=== PATIENT | female | born 1940 | race Caucasian/White ===

== ENCOUNTER 2021-09-12 09:53 | Day surgery (SDC) | payer MEDICARE, BC ==
[2021-09-07 15:04] LABS: BASOPHILS # (AUTO) 0.1 X10'3 (0-0.2); BASOPHILS % (AUTO) 1.6 % (0-1); EOSINOPHILS # (AUTO) 0.2 X10'3 (0-0.9); EOSINOPHILS % (AUTO) 3.7 % (0-6); HEMATOCRIT 22.9 % (35.0-45.0); LYMPHOCYTES # (AUTO) 0.9 X10'3 (1.1-4.8); LYMPHOCYTES % (AUTO) 15.5 % (21-51); MEAN CORPUSCULAR HEMOGLOBIN 22.3 PG (27.0-31.0); MEAN CORPUSCULAR HGB CONC 30.6 g/dL (33.0-36.5); MEAN PLATELET VOLUME 8.5 FL (7.4-10.4); MONOCYTES # (AUTO) 0.6 X10'3 (0-0.9); MONOCYTES % (AUTO) 10.9 % (2-12); NEUTROPHILS # (AUTO) 3.8 X10'3 (1.8-7.7); NEUTROPHILS % (AUTO) 68.3 % (42-75); PLATELET COUNT 347 X10'3 (140-440); RED BLOOD COUNT 3.13 X10'6 (4.20-5.60); RED CELL DISTRIBUTION WIDTH 17.2 % (11.5-14.5); WHITE BLOOD COUNT 5.6 X10'3 (4.5-11.0)
[2021-09-07 15:16] LABS: APTT 26 SECONDS (22-32)
[2021-09-07 15:20] LABS: ALANINE AMINOTRANSFERASE 16 U/L (12-78); ALBUMIN 3.5 G/DL (3.4-5.0); ALKALINE PHOSPHATASE 71 IU/L (46-116); ANION GAP 9 (8-16); ASPARTATE AMINO TRANSFERASE 14 U/L (10-37); BILIRUBIN,TOTAL 0.2 MG/DL (0.1-1.0); BLOOD UREA NITROGEN 16 MG/DL (7-18); BUN/CREATININE RATIO 14.3 (6.6-38.0); CALCIUM 8.8 MG/DL (8.5-10.1); CHLORIDE 106 MMOL/L (99-107); CREATININE 1.12 MG/DL (0.40-0.90); GLUCOSE 104 MG/DL (70-104); SODIUM 138 MMOL/L (135-145); TOTAL CARBON DIOXIDE 22.7 MMOL/L (24-32); eGFR 47 ML/MIN
[~2021-09-12] VITALS: Ht 144.8 cm; Wt 84.8 kg
[2021-09-12] MEDS ORDERED: LORazepam 0.5 MG tablet PO PRN (10:10)
[2021-09-12] MEDS ORDERED: nitroGLYCERIN 0.4mg SUBLingual tab SL PRN (10:10)
[2021-09-12] MEDS ORDERED: diphenhydrAMINE 25mg capsule PO PRN (10:10)
[2021-09-12 10:12] VITALS: BP 146/64
[2021-09-12] MEDS ORDERED: ATOR20TA66 PO (10:45)
[2021-09-12] MEDS ORDERED: TIMO5DRO4 EACHEYE (10:45)
[2021-09-12] MEDS ORDERED: DICL50TA8 PO (10:45)
[2021-09-12] MEDS ORDERED: SPIR50TA5 PO (10:45)
[2021-09-12] MEDS ORDERED: SLEEP AID (11:03)
[2021-09-12] MEDS ORDERED: MULT-1085 PO (11:03)
[2021-09-12] MEDS ORDERED: [UNRECOGNIZED DRUG - MIXTURE] (11:03)
[2021-09-12] MEDS ORDERED: GLUC (11:03)
[2021-09-12] MEDS ORDERED: CHROND (11:03)
[2021-09-12] MEDS ORDERED: CHOL20002 PO (11:03)
[2021-09-12] MEDS ORDERED: ESOM20CA PO (11:03)
[2021-09-12 11:57] LABS: BASOPHILS # (AUTO) 0.1 X10'3 (0-0.2); EOSINOPHILS # (AUTO) 0.1 X10'3 (0-0.9); LYMPHOCYTES # (AUTO) 0.8 X10'3 (1.1-4.8); MONOCYTES # (AUTO) 0.5 X10'3 (0-0.9); RED CELL DISTRIBUTION WIDTH 17.5 % (11.5-14.5); WHITE BLOOD COUNT 4.3 X10'3 (4.5-11.0)
[2021-09-12 11:58] LABS: BASOPHILS % (AUTO) 1.7 % (0-1); EOSINOPHILS % (AUTO) 2.6 % (0-6); MEAN CORPUSCULAR HEMOGLOBIN 21.9 PG (27.0-31.0); MEAN CORPUSCULAR HGB CONC 30.6 g/dL (33.0-36.5); MEAN CORPUSCULAR VOLUME 71.6 FL (78-98); MEAN PLATELET VOLUME 8.5 FL (7.4-10.4); MONOCYTES % (AUTO) 12.5 % (2-12); NEUTROPHILS # (AUTO) 2.7 X10'3 (1.8-7.7); NEUTROPHILS % (AUTO) 64.2 % (42-75); PLATELET COUNT 334 X10'3 (140-440); RED BLOOD COUNT 2.96 X10'6 (4.20-5.60)
[2021-09-12 12:00] LABS: HEMATOCRIT 21.2 % (35.0-45.0); HEMOGLOBIN 6.5 g/dl (12.0-16.0)
[2021-09-12 12:25] LABS: ANISOCYTOSIS 1+; MICROCYTOSIS 1+; PLATELET ESTIMATE NORMAL
[2021-09-12 12:26] LABS: POLYCHROMASIA 2+
[2021-09-12 12:27] LABS: ROULEAUX 2+
[2021-09-12 12:28] LABS: ELLIPTOCYTES FEW; HYPOCHROMASIA 2+; SCHISTOCYTES FEW
[2021-09-12] MEDS ORDERED: [UNRECOGNIZED DRUG - OTHER] (13:01)
[2021-09-12] MEDS ORDERED: DENO60DI SUBCUT (14:23)
[2021-09-12] MEDS ORDERED: GLUC1CAP36 PO (14:25)
[2021-09-13] MEDS ORDERED: VITC500T PO (09:47)
[2021-09-13] MEDS ORDERED: FER325T PO (09:47)
[2021-09-13] MEDS ORDERED: DOCU100C40 PO (09:47)
== END 2021-09-12 12:30 | disposition home or self-care (01) ==
LOC: SSTAY O 09:53
PROVIDERS: ATTEND Internal Medicine Cardiovascular Disease
DX: R94.39 Abnormal result of other cardiovascular function study (principal); Z53.8 Procedure and treatment not carried out for other reasons; R06.09 Other forms of dyspnea; K21.9 Gastro-esophageal reflux disease without esophagitis; H40.9 Unspecified glaucoma; E78.5 Hyperlipidemia, unspecified; E66.9 Obesity, unspecified; Z68.41 Body mass index [BMI] 40.0-44.9, adult; Z79.01 Long term (current) use of anticoagulants; Z79.899 Other long term (current) drug therapy
CPT/HCPCS: 36415; 71046; 80053; 85025; 85610; 85730; 93005; Q0163; 85008

== ENCOUNTER 2021-09-12 12:29 | Observation (INO) | payer MEDICARE, BC ==
[2021-09-12] VITALS (9 sets, daily range): BP systolic 123–157; BP diastolic 50–78
[~2021-09-12] VITALS: Ht 144.8 cm; Wt 85.4 kg
[~2021-09-12 12:29] MED LIST: ATOR20TA66 PO; CHOL20002 PO; CHROND; DICL50TA8 PO; ESOM20CA PO; GLUC; MULT-1085 PO; SLEEP AID; SPIR50TA5 PO; TIMO5DRO4 EACHEYE; [UNRECOGNIZED DRUG - MIXTURE]
[2021-09-12] MEDS ORDERED: [UNRECOGNIZED DRUG - OTHER] (13:01)
[2021-09-12 13:13] LABS: BASOPHILS # (AUTO) 0.1 X10'3 (0-0.2); BASOPHILS % (AUTO) 1.7 % (0-1); EOSINOPHILS # (AUTO) 0.1 X10'3 (0-0.9); EOSINOPHILS % (AUTO) 1.8 % (0-6); LYMPHOCYTES # (AUTO) 0.9 X10'3 (1.1-4.8); LYMPHOCYTES % (AUTO) 21.8 % (21-51); MEAN CORPUSCULAR HEMOGLOBIN 22.3 PG (27.0-31.0); MEAN CORPUSCULAR VOLUME 72.1 FL (78-98); MEAN PLATELET VOLUME 8.7 FL (7.4-10.4); MONOCYTES # (AUTO) 0.5 X10'3 (0-0.9); MONOCYTES % (AUTO) 11.8 % (2-12); NEUTROPHILS # (AUTO) 2.6 X10'3 (1.8-7.7); NEUTROPHILS % (AUTO) 62.9 % (42-75); PLATELET COUNT 341 X10'3 (140-440); RED BLOOD COUNT 2.91 X10'6 (4.20-5.60); RED CELL DISTRIBUTION WIDTH 17.7 % (11.5-14.5); WHITE BLOOD COUNT 4.1 X10'3 (4.5-11.0)
[2021-09-12 13:18] LABS: HEMOGLOBIN 6.5 g/dl (12.0-16.0)
[2021-09-12 13:27] LABS: APTT 24 SECONDS (22-32)
[2021-09-12 13:30] LABS: ALANINE AMINOTRANSFERASE 17 U/L (12-78); ALBUMIN 3.5 G/DL (3.4-5.0); ALBUMIN/GLOBULIN RATIO 0.9 (1.1-1.5); ALKALINE PHOSPHATASE 56 IU/L (46-116); ANION GAP 13 (8-16); ASPARTATE AMINO TRANSFERASE 10 U/L (10-37); BILIRUBIN,TOTAL 0.3 MG/DL (0.1-1.0); BLOOD UREA NITROGEN 18 MG/DL (7-18); BUN/CREATININE RATIO 17.5 (6.6-38.0); CALCIUM 8.7 MG/DL (8.5-10.1); CHLORIDE 105 MMOL/L (99-107); CREATININE 1.03 MG/DL (0.40-0.90); GLUCOSE 88 MG/DL (70-104); POTASSIUM 3.5 MMOL/L (3.5-5.1); SODIUM 139 MMOL/L (135-145); TOTAL CARBON DIOXIDE 21.2 MMOL/L (24-32); TOTAL PROTEIN 7.2 G/DL (6.4-8.2); eGFR 52 ML/MIN
--- NOTE | 2021-09-12 13:30 | NUR ---
CONSENTS SIGNED FOR BLOOD
[2021-09-12 13:46] LABS: CLARITY,URINE CLEAR (Clear); GLUCOSE, URINE NEGATIVE (Neg); KETONES,URINE NEGATIVE (Neg); LEUKOCYTE ESTERASE ,URINE NEGATIVE (Neg); NITRITES, URINE NEGATIVE (Neg); OCCULT BLOOD,URINE NEGATIVE (Neg); PH,URINE 5.5 (4.8-8.0); PROTEIN,URINE NEGATIVE (Neg); UROBILINOGEN,URINE 0.2 E.U/dL (0.2-1.0)
[2021-09-12 13:48] LABS: COLOR,URINE STRAW (Yellow); UA COLLECTION TYPE VOIDED
[2021-09-12] MEDS ORDERED: DENO60DI SUBCUT (14:23)
[2021-09-12] MEDS ORDERED: GLUC1CAP36 PO (14:25)
[2021-09-12] MEDS ORDERED: metoclopramide 5 mg/ml inj IV PRN (14:40)
[2021-09-12] MEDS ORDERED: acetaminophen 325mg tablet PO PRN ×2 (14:40)
[2021-09-12] MEDS ORDERED: potassium CL 10mEq/100ml bag 100 ML IV PRN (14:40)
[2021-09-12] MEDS ORDERED: normal saline 1000ml 1,000 ML IV SCH (14:40)
[2021-09-12] MEDS ORDERED: potassium Cl 20 mEq SR tablet PO PRN ×2 (14:40)
[2021-09-12] MEDS ORDERED: magnesium 2GM in 50ml NS 50 ML IV PRN (14:40)
[2021-09-12] MEDS ORDERED: magnesium hydroxide 30ml (MOM) UD suspension PO PRN (14:40)
[2021-09-12] MEDS ORDERED: magnesium Cl slow-release 64mg tablet PO PRN (14:40)
[2021-09-12] MEDS ORDERED: magnesium 4gm in 100ml NS 100 ML IV PRN (14:40)
[2021-09-12] MEDS ORDERED: mag hydrox/Alum hydrox/simeth 30ml oral suspension PO PRN (14:40)
[2021-09-12] MEDS ORDERED: bisacodyl 10mg suppository rectal RC PRN (14:40)
[2021-09-12] MEDS ORDERED: ondansetron/PF 4mg/2ml inj IV PRN (14:40)
[2021-09-12] MEDS ORDERED: ondansetron 4mg rapidly disintigrating tab PO PRN (14:40)
[2021-09-12] MEDS ORDERED: morphine 2 MG/ML inj. syringe IV PRN ×2 (14:40)
[2021-09-12 15:16] LABS: MAGNESIUM 1.9 MG/DL (1.5-2.4)
[2021-09-12] MEDS ORDERED: PERFLUTREN PROTEIN-A MICROSPHR (Optison) 0.22 MG/ML 3ML VIAL IV ONE (15:30)
[2021-09-12 15:37] LABS: OCCULT BLOOD STOOL NEGATIVE (Neg)
[2021-09-12] MEDS: K and/or MAG REPLACEMENT MC SCH (18:38)
--- NOTE | 2021-09-12 18:42 | NUR ---
Pt pink, alert, no s/s of transfusion reaction. PIV site c/d/i s complication or adverse rxn. Friend at bedside.
--- NOTE | 2021-09-12 19:17 | NUR ---
Pt pink, alert, no acute/resp distress. Report called to floor. PIV site c/d/i s complication or adverse reaction.
[2021-09-12 19:18] LABS: POTASSIUM 3.6 MMOL/L (3.5-5.1)
--- NOTE | 2021-09-12 19:40 | NUR ---
Received report from Herve MACHADO from ED, patient came up via gurney but was able to walk to the bed. Bed placed in locked & low position and call light placed within reach.
[2021-09-12] MEDS: docusate sod 100mg capsule PO SCH (20:25)
[2021-09-12] MEDS: ascorbic acid 500mg tablet PO SCH (20:25)
[2021-09-12] MEDS: ferrous sulfate 325mg tablet PO SCH (20:25)
[2021-09-12] MEDS ORDERED: temazepam 15mg capsule PO PRN (21:00)
[2021-09-12] MEDS ORDERED: timolol 0.5% ophthalmic solution 5ml bottle EACHEYE SCH (21:00)
[2021-09-12] MEDS ORDERED: pantoprazole 40mg Tablet.DR PO SCH (21:00)
[2021-09-13 02:00] VITALS: BP 124/42
[2021-09-13 05:47] LABS: HEMATOCRIT 26.1 % (35.0-45.0); HEMOGLOBIN 8.5 g/dl (12.0-16.0); MEAN CORPUSCULAR HGB CONC 32.7 g/dL (33.0-36.5); MEAN CORPUSCULAR VOLUME 76.2 FL (78-98); MEAN PLATELET VOLUME 8.6 FL (7.4-10.4); PLATELET COUNT 292 X10'3 (140-440); RED BLOOD COUNT 3.42 X10'6 (4.20-5.60); RED CELL DISTRIBUTION WIDTH 18.9 % (11.5-14.5); WHITE BLOOD COUNT 5.1 X10'3 (4.5-11.0)
[2021-09-13 06:00] VITALS: BP 149/53
[2021-09-13 06:14] LABS: ALBUMIN 3.1 G/DL (3.4-5.0); ANION GAP 8 (8-16); BLOOD UREA NITROGEN 16 MG/DL (7-18); BUN/CREATININE RATIO 22.2 (6.6-38.0); CALCIUM 8.4 MG/DL (8.5-10.1); CHLORIDE 110 MMOL/L (99-107); CHOL/HDL RATIO 2.7 (0.00-4.99); CHOLESTEROL 128 MG/DL (0-200); CREATININE 0.72 MG/DL (0.40-0.90); GLUCOSE 86 MG/DL (70-104); HDL CHOLESTEROL 47 MG/DL (35-60); LDL CHOLESTEROL 70 MG/DL (50-100); MAGNESIUM 1.8 MG/DL (1.5-2.4); SODIUM 141 MMOL/L (135-145); TOTAL CARBON DIOXIDE 23.4 MMOL/L (24-32); TRIGLYCERIDES 83 MG/DL (20-135); eGFR 78 ML/MIN
--- NOTE | 2021-09-13 06:33 | NUR ---
Problems reprioritized. Patient report given, questions answered & plan of care reviewed with Aris MACHADO.
[2021-09-13] MEDS: ferrous sulfate 325mg tablet PO SCH (07:14)
[2021-09-13] MEDS: ascorbic acid 500mg tablet PO SCH (07:14)
[2021-09-13] MEDS: docusate sod 100mg capsule PO SCH (07:15)
[2021-09-13] MEDS: K and/or MAG REPLACEMENT MC SCH (07:16)
[2021-09-13] MEDS ORDERED: spironolactone 50 MG tablet PO SCH (08:00)
[2021-09-13] MEDS ORDERED: atorvastatin 20mg tablet PO SCH (08:00)
[2021-09-13] MEDS ORDERED: FER325T PO (09:47)
[2021-09-13] MEDS ORDERED: DOCU100C40 PO (09:47)
[2021-09-13] MEDS ORDERED: VITC500T PO (09:47)
== END 2021-09-13 11:27 | disposition home or self-care (01) ==
LOC: ER 12:29 → ED HOLD 14:45 → PCU 3S 19:30
PROVIDERS: ADMIT Family Medicine; ATTEND Family Medicine
DX: D50.9 Iron deficiency anemia, unspecified (principal); E78.5 Hyperlipidemia, unspecified; M19.011 Primary osteoarthritis, right shoulder; N18.30 Chronic kidney disease, stage 3 unspecified; H40.9 Unspecified glaucoma; K62.5 Hemorrhage of anus and rectum; K64.4 Residual hemorrhoidal skin tags; M81.0 Age-related osteoporosis without current pathological fracture; Z96.653 Presence of artificial knee joint, bilateral; Z79.899 Other long term (current) drug therapy
CPT/HCPCS: 36415; 71045; 71046; 80048; 80053; 80061; 81003; 82272; 83540; 83550; 83735; 84132; 85025; 85027; 85610; 85730; 86885; 86900; 86901; 86920; 87081; 93005; 93306; 96360; 96361; 97116; 97161; 97530; 99285; G0378; J7030; P9016; Q0163; 85008

== ENCOUNTER 2021-12-19 09:33 | Day surgery (SDC) | payer MEDICARE, BC ==
[~2021-12-19] VITALS: Ht 144.8 cm; Wt 82.4 kg
[2021-12-19] VITALS (10 sets, daily range): BP systolic 125–152; BP diastolic 50–67
[~2021-12-19 09:33] MED LIST changes: -CHROND; +DENO60DI SUBCUT; +DOCU100C40 PO; +FER325T PO; -GLUC; +GLUC1CAP36 PO; -SLEEP AID; +VITC500T PO; -[UNRECOGNIZED DRUG - MIXTURE]
[2021-12-19] MEDS ORDERED: normal saline 1,000 ML IV SCH (10:00)
[2021-12-19] MEDS ORDERED: nitroGLYCERIN 0.4mg SUBLingual tab SL PRN (10:00)
[2021-12-19] MEDS ORDERED: diphenhydrAMINE 25mg capsule PO PRN (10:00)
[2021-12-19] MEDS ORDERED: LORazepam 0.5 MG tablet PO PRN (10:00)
[2021-12-19 10:54] LABS: BASOPHILS # (AUTO) 0.1 X10'3 (0-0.2); BASOPHILS % (AUTO) 1.9 % (0-1); EOSINOPHILS # (AUTO) 0.2 X10'3 (0-0.9); EOSINOPHILS % (AUTO) 3.9 % (0-6); HEMATOCRIT 33.3 % (35.0-45.0); HEMOGLOBIN 11.4 g/dl (12.0-16.0); LYMPHOCYTES # (AUTO) 0.8 X10'3 (1.1-4.8); MEAN CORPUSCULAR HEMOGLOBIN 32.4 PG (27.0-31.0); MEAN CORPUSCULAR HGB CONC 34.4 g/dL (33.0-36.5); MEAN CORPUSCULAR VOLUME 94.1 FL (78-98); MEAN PLATELET VOLUME 9.3 FL (7.4-10.4); MONOCYTES # (AUTO) 0.5 X10'3 (0-0.9); MONOCYTES % (AUTO) 12.3 % (2-12); NEUTROPHILS # (AUTO) 2.7 X10'3 (1.8-7.7); NEUTROPHILS % (AUTO) 63.9 % (42-75); PLATELET COUNT 247 X10'3 (140-440); RED BLOOD COUNT 3.53 X10'6 (4.20-5.60); RED CELL DISTRIBUTION WIDTH 15.8 % (11.5-14.5); WHITE BLOOD COUNT 4.2 X10'3 (4.5-11.0)
[2021-12-19] MEDS ORDERED: DOCU-148 PO (11:01)
[2021-12-19] MEDS ORDERED: FERR-119 PO (11:01)
[2021-12-19 11:15] LABS: APTT 28 SECONDS (22-32)
[2021-12-19 11:18] LABS: ALBUMIN 3.5 G/DL (3.4-5.0); ANION GAP 10 (8-16); BLOOD UREA NITROGEN 16 MG/DL (7-18); CHLORIDE 103 MMOL/L (99-107); CREATININE 1.14 MG/DL (0.40-0.90); GLUCOSE 92 MG/DL (70-104); POTASSIUM 3.9 MMOL/L (3.5-5.1); SODIUM 136 MMOL/L (135-145); TOTAL CARBON DIOXIDE 23.4 MMOL/L (24-32); eGFR 46 ML/MIN
[2021-12-19] MEDS ORDERED: fentaNYL/PF 50MCG/1 ML 2ML syringe ONE (13:33)
[2021-12-19] MEDS ORDERED: iohexol 350MG/ML 100ml bottle IV ONE ×2 (13:33→14:12)
[2021-12-19] MEDS ORDERED: midazolam 1 mg/ML 2ml injection ONE (13:33)
[2021-12-19] MEDS ORDERED: LIDOcaine 1% 30ml preserv. free vial ONE (13:33)
[2021-12-19] MEDS ORDERED: HYDROcodone/acetaminophen 10/325mg tab PO PRN (15:00)
[2021-12-19] MEDS ORDERED: ondansetron/PF 4mg/2ml inj IV PRN (15:00)
[2021-12-19] MEDS ORDERED: OXAZEpam 15mg capsule PO PRN (15:00)
[2021-12-19] MEDS ORDERED: HYDROcodone/acetaminophen 5mg/325mg tablet PO PRN (15:00)
== END 2021-12-19 19:45 | disposition home or self-care (01) ==
LOC: SSTAY O 09:33
PROVIDERS: ATTEND Internal Medicine Cardiovascular Disease
DX: R94.39 Abnormal result of other cardiovascular function study (principal); I25.10 Atherosclerotic heart disease of native coronary artery without angina pectoris; I10 Essential (primary) hypertension; E78.5 Hyperlipidemia, unspecified; Z87.891 Personal history of nicotine dependence; Z79.899 Other long term (current) drug therapy; Z98.890 Other specified postprocedural states; Z79.01 Long term (current) use of anticoagulants
CPT/HCPCS: 36415; 71046; 80048; 85025; 85610; 85730; 93458; 99152; 99153; C1760; C1769; J1644; J2250; J3010; J3490; J7030; Q0163; Q9967; A4620; A6258; A6449

== ENCOUNTER 2023-08-25 09:15 | Inpatient (IN) | payer MEDICARE, BC ==
[~2023-08-25] VITALS: Ht 142.2 cm; Wt 80.7 kg
[~2023-08-25 09:15] MED LIST changes: +CALCIUM PO; -CHOL20002 PO; +DOCU-148 PO; -DOCU100C40 PO; -FER325T PO; +FERR-119 PO; +TIMO5DRO15 EACHEYE; -TIMO5DRO4 EACHEYE; +VIT D PO; -VITC500T PO; +XAL0.005OS EACHEYE; +[UNRECOGNIZED DRUG - OTHER] PO; +[UNRECOGNIZED DRUG - OTHER] PO
[2023-08-28] MEDS ORDERED: VITC500T PO (15:12)
[2023-08-28] MEDS ORDERED: METO-539 PO (15:12)
[2023-09-04] VITALS (48 sets, daily range): BP systolic 88–206; BP diastolic 49–99; PULSE 62–89; RESP 10–31; TEMP 97.2–98.9; O2SAT 78–100
[2023-09-04] MEDS ORDERED: DOCUMENT DATE & TIME OF BETA-BLOCKER PO ONE (05:30)
[2023-09-04 08:08] LABS: ISTAT HGB 11.2 g/dl (12.0-16.0); ISTAT IONIZED CALCIUM 1.2 mmol/L (1.03-1.32); ISTAT K 3.9 mmol/L (3.5-5.1)
[2023-09-04] MEDS: cefazolin 2gm/D5W 100mL 100 ML IV ONE (08:13)
[2023-09-04] MEDS: ringers solution, lacted 1,000 ML IV SCH (08:14)
[2023-09-04] MEDS: vancomycin 1,500 MG in NS 300ml IV soln IV ONE (08:14)
[2023-09-04] MEDS: famotidine 20mg tablet PO ONE (08:14)
[2023-09-04] MEDS: tranexamic acid 650mg tablet PO ONE (08:15)
[2023-09-04] MEDS ORDERED: ketorolac trometh. 30mg/ml inj. ONE (08:50)
[2023-09-04] MEDS ORDERED: ROPIVAcaine 0.5% (5mg/ml) 30ml vial ONE (08:50)
[2023-09-04] MEDS ORDERED: meperidine/PF 25mg/ml syringe IV PRN ×3 (09:45)
[2023-09-04] MEDS ORDERED: enalaprilat dihydrate 2.5mg/2ml vial IV PRN (09:45)
[2023-09-04] MEDS ORDERED: labetalol 20mg/4ml (5mg/ml) syringe IV PRN (09:45)
[2023-09-04] MEDS ORDERED: ondansetron/PF 4mg/2ml inj IV PRN ×2 (09:45→13:15)
[2023-09-04] MEDS ORDERED: ringers solution, lacted 1,000 ML IV SCH (09:45)
[2023-09-04] MEDS ORDERED: morphine 2 MG/ML inj. syringe IV PRN (09:45)
[2023-09-04] MEDS ORDERED: proCHLORperazine 10 MG/2 ml inj IV PRN (09:45)
[2023-09-04] MEDS ORDERED: morphine 4 MG/ML inj SYRINge IV PRN (09:45)
[2023-09-04] MEDS ORDERED: sevoflurane 250ml liquid IH ONE (10:20)
[2023-09-04] MEDS ORDERED: midazolam 1 mg/ML 2ml injection ONE (10:30)
[2023-09-04] MEDS ORDERED: fentaNYL/PF 50MCG/1 ML 2ML syringe ONE (10:30)
[2023-09-04] MEDS ORDERED: LIDOcaine 1%/PF 5ML 10 MG/ML VIAL ONE (10:51)
[2023-09-04] MEDS ORDERED: dexamethasone sod phosphate 4mg/ml inj. ONE (10:51)
[2023-09-04] MEDS ORDERED: rocuronium 10mg/ml inj IV ONE (10:52)
[2023-09-04] MEDS ORDERED: propofol inj 20 ML IV ONE (10:52)
[2023-09-04] MEDS ORDERED: ROPIVAcaine 0.2% (10 MG/5 ML) BOLUS INJECTION INTERSCALE PRN (11:40)
[2023-09-04] MEDS ORDERED: ROPIVAcaine 0.2%/PF PUMP/bolus 545 ML INTERSCALE SCH (11:40)
[2023-09-04] MEDS ORDERED: albumin (Human) 5% 250ml 250 ML IV ONE (12:27)
[2023-09-04] MEDS ORDERED: magnesium hydroxide 30ml (MOM) UD suspension PO PRN (13:15)
[2023-09-04] MEDS ORDERED: acetaminophen 325mg tablet PO PRN (13:15)
[2023-09-04] MEDS ORDERED: diphenhydrAMINE 25mg capsule PO PRN (13:15)
[2023-09-04] MEDS ORDERED: HYDROmorphone inj. 0.5 MG/0.5 ML DISP.SYRIN IV PRN (13:15)
[2023-09-04] MEDS ORDERED: HYDROmorphone 1 mg/ml syringe IV PRN (13:15)
[2023-09-04] MEDS ORDERED: bisacodyl 10mg suppository rectal RC PRN (13:15)
[2023-09-04] MEDS ORDERED: [UNRECOGNIZED DRUG - OTHER] PO PRN (13:20)
[2023-09-04] MEDS ORDERED: docusate sod 100mg capsule PO PRN (13:20)
[2023-09-04] MEDS ORDERED: LIDOcaine 1% 30ml preserv. free vial ONE (15:01)
[2023-09-04] MEDS: albuterol 2.5 MG/3 ML nebule NEB ONE (15:04)
[2023-09-04] MEDS ORDERED: albuterol 2.5 MG/3 ML nebule NEB SCH (19:00)
[2023-09-04] MEDS: potassium cl 20mEq in 1/2 NS 1,000 ML IV SCH (19:49)
[2023-09-04] MEDS: acetaminophen 325mg tablet PO SCH (19:50)
[2023-09-04] MEDS: ascorbic acid 500mg tablet PO SCH (19:51)
[2023-09-04] MEDS: ferrous sulfate 325mg tablet PO SCH (19:51)
[2023-09-04] MEDS: DICLOFENAC SODIUM 50 MG PO SCH (20:00)
[2023-09-04] MEDS: ceFAZolin/D5W- 1GM premix 50 ML IV SCH (20:08)
[2023-09-04] MEDS: vancomycin/NS 1 GM ADD-VANTAGE 250 ML IV SCH (20:08)
[2023-09-04] MEDS: sennosides 8.6mg tablet PO SCH (20:39)
[2023-09-04] MEDS: atorvastatin 20mg tablet PO SCH (20:42)
[2023-09-04] MEDS: pantoprazole 40mg Tablet.DR PO SCH (20:42)
[2023-09-04] MEDS: diphenhydrAMINE 25mg capsule PO PRN (20:43)
[2023-09-04] MEDS: latanoprost 0.005% 2.5ml ophthalmic drops EACHEYE SCH (20:58)
[2023-09-04] MEDS ORDERED: [UNRECOGNIZED DRUG - OTHER] PO SCH (21:00)
[2023-09-05] VITALS (9 sets, daily range): BP systolic 117–135; BP diastolic 42–80; PULSE 71–83; RESP 12–18; TEMP 97.3–98.6; O2SAT 96–99
[2023-09-05] MEDS: oxyCODONE IR 5mg (immed. release) tablet PO PRN ×2 (05:58→18:47)
[2023-09-05 07:27] LABS: BASOPHILS % (AUTO) 0.3 % (0-1); EOSINOPHILS % (AUTO) 0 % (0-6); HEMATOCRIT 28.3 % (35.0-45.0); LYMPHOCYTES # (AUTO) 0.5 X10'3 (1.1-4.8); LYMPHOCYTES % (AUTO) 5.5 % (21-51); MEAN CORPUSCULAR HEMOGLOBIN 34.7 PG (27.0-31.0); MEAN CORPUSCULAR HGB CONC 35.2 g/dL (33.0-36.5); MEAN CORPUSCULAR VOLUME 98.7 FL (78-98); MEAN PLATELET VOLUME 9.3 FL (7.4-10.4); MONOCYTES # (AUTO) 1.1 X10'3 (0-0.9); MONOCYTES % (AUTO) 11.4 % (2-12); NEUTROPHILS % (AUTO) 82.8 % (42-75); PLATELET COUNT 222 X10'3 (140-440); RED BLOOD COUNT 2.87 X10'6 (4.20-5.60); RED CELL DISTRIBUTION WIDTH 14.1 % (11.5-14.5); WHITE BLOOD COUNT 9.7 X10'3 (4.5-11.0)
[2023-09-05 07:51] LABS: ANION GAP 9 (8-16); CHLORIDE 100 MMOL/L (99-107); POTASSIUM 3.9 MMOL/L (3.5-5.1); SODIUM 131 MMOL/L (135-145); TOTAL CARBON DIOXIDE 21.6 MMOL/L (24-32)
[2023-09-05] MEDS: calcium carbonate/vitamin D3 tablet PO SCH (08:00)
[2023-09-05] MEDS ORDERED: [UNRECOGNIZED DRUG - OTHER] PO SCH (08:00)
[2023-09-05] MEDS: aspirin 325mg tablet PO SCH (09:15)
[2023-09-05] MEDS: multivitamins, therapeutics tablet PO SCH (09:15)
[2023-09-05] MEDS: celeCOXIB 100mg capsule PO SCH (09:16)
[2023-09-05] MEDS: metoprolol succinate 25mg (24-HOUR) SR. Tablet PO SCH (09:16)
[2023-09-05] MEDS: TIMOLOL MALEATE 0.5% 10ml 1 APPLIC BOTTLE EACHEYE SCH (11:30)
[2023-09-05] MEDS: spironolactone 50 MG tablet PO SCH (15:12)
[2023-09-05] MEDS ORDERED: celeCOXIB 100mg capsule PO SCH (20:00)
[2023-09-05] MEDS: LIDOcaine 2% Viscous 15ml cup MM PRN (20:48)
[2023-09-06 06:59] VITALS: BP 132/49; PULSE 78; RESP 16; TEMP 97.8; O2SAT 97
[2023-09-06 07:03] LABS: BASOPHILS % (AUTO) 0.3 % (0-1); EOSINOPHILS # (AUTO) 0.1 X10'3 (0-0.9); EOSINOPHILS % (AUTO) 0.7 % (0-6); HEMATOCRIT 25.7 % (35.0-45.0); LYMPHOCYTES # (AUTO) 0.6 X10'3 (1.1-4.8); LYMPHOCYTES % (AUTO) 5.4 % (21-51); MEAN CORPUSCULAR HEMOGLOBIN 34.8 PG (27.0-31.0); MEAN CORPUSCULAR VOLUME 99.5 FL (78-98); MEAN PLATELET VOLUME 9.5 FL (7.4-10.4); MONOCYTES # (AUTO) 1.6 X10'3 (0-0.9); MONOCYTES % (AUTO) 15.7 % (2-12); NEUTROPHILS % (AUTO) 77.9 % (42-75); PLATELET COUNT 184 X10'3 (140-440); RED BLOOD COUNT 2.58 X10'6 (4.20-5.60); RED CELL DISTRIBUTION WIDTH 13.9 % (11.5-14.5); WHITE BLOOD COUNT 10.3 X10'3 (4.5-11.0)
[2023-09-06 09:00] VITALS: RESP 16; O2SAT 98
[2023-09-06] MEDS ORDERED: acetaminophen 325mg tablet PO PRN (13:15)
[2023-09-06] MEDS ORDERED: ACET-1008 PO (14:47)
[2023-09-06] MEDS ORDERED: CELE-148 PO (14:47)
== END 2023-09-06 13:35 | disposition home or self-care (01) | DRG 483 ==
LOC: PAS IN 09-04 07:07 → ORTHO 4S 09-04 19:06
PROVIDERS: ADMIT Orthopaedic Surgery; ATTEND Orthopaedic Surgery
PROC: 0LS40ZZ Reposition Left Upper Arm Tendon, Open Approach (ICD-10-PCS; 2023-09-04)
PROC: 3E0T3BZ Introduction of Anesthetic Agent into Peripheral Nerves and Plexi, Percutaneous Approach (ICD-10-PCS; 2023-09-04)
PROC: 3E0T33Z Introduction of Anti-inflammatory into Peripheral Nerves and Plexi, Percutaneous Approach (ICD-10-PCS; 2023-09-04)
PROC: 0W9B30Z Drainage of Left Pleural Cavity with Drainage Device, Percutaneous Approach (ICD-10-PCS; 2023-09-04)
PROC: 0RRK00Z Replacement of Left Shoulder Joint with Reverse Ball and Socket Synthetic Substitute, Open Approach (ICD-10-PCS; principal; 2023-09-04 10:20)
DX: M19.012 Primary osteoarthritis, left shoulder (principal); J93.0 Spontaneous tension pneumothorax; M81.0 Age-related osteoporosis without current pathological fracture; E66.01 Morbid (severe) obesity due to excess calories; M75.122 Complete rotator cuff tear or rupture of left shoulder, not specified as traumatic; K21.9 Gastro-esophageal reflux disease without esophagitis; I10 Essential (primary) hypertension; R09.02 Hypoxemia; T41.45XA Adverse effect of unspecified anesthetic, initial encounter; E78.5 Hyperlipidemia, unspecified; M65.812 Other synovitis and tenosynovitis, left shoulder; Z96.652 Presence of left artificial knee joint; Z79.899 Other long term (current) drug therapy; Z68.39 Body mass index [BMI] 39.0-39.9, adult; Y92.89 Other specified places as the place of occurrence of the external cause
CPT/HCPCS: 36415; 71045; 73030; 80047; 80051; 85025; 87081; 93005; 94640; 94760; 94799; 97161; 97530; A4565; A4615; A4618; A6258; A7000; C1716; G0378; J0690; J1100; J1885; J2250; J2405; J2704; J2710; J2795; J3010; J3370; J3480; J3490; J7120; J7121; P9045; Q0163